=== PATIENT | male | born 1985 | race Two or more races ===

== ENCOUNTER 2021-03-06 12:55 | Inpatient (IN) | payer OTHER ==
[~2021-03-06] VITALS: Ht 175.3 cm; Wt 126.0 kg
[2021-03-06] MEDS ORDERED: ONDANSETRON HCL 4 MG/2 ML VIAL IV ONE (14:00)
[2021-03-06] MEDS ORDERED: SODIUM CHLORIDE 0.9% 1,000 ML IVB ONE (14:00)
[2021-03-06 14:54] LABS: Basophils # (auto) 0 10 ^3/uL (0-0.2); Eosinophils # (auto) 0 10 ^3/uL (0-0.8); Monocytes # (auto) 1.4 10 ^3/uL (0-1.3); Monocytes % (auto) 11.4 % (0.0-12.0); Neutrophils # (auto) 9.4 10 ^3/uL (1.6-8.6); Red Cell Distribution Width 15.5 % (11.8-14.3)
[2021-03-06 14:57] LABS: Basophils % (auto) 0.3 % (0.0-2.0); Eosinophils % (auto) 0.1 % (0.0-7.0); Hematocrit 54.7 % (41.0-53.0); Hemoglobin 17.9 g/dL (13.5-17.5); Lymphocytes # (auto) 1.7 10 ^3/uL (0.4-5.4); Lymphocytes % (auto) 13.6 % (10.0-50.0); Mean Corpuscular Hemoglobin 26.4 pg (28.0-32.0); Mean Corpuscular Hgb Conc. 32.7 g/dL (32.0-36.0); Mean Corpuscular Volume 80.5 fL (80.0-100.0); Neutrophils % (auto) 74.6 % (37.0-80.0); Nucleated Red Blood Cells % 1.2 %; Red Blood Cells 6.79 10^6/uL (4.5-5.90); White Blood Cell 12.6 10^3/uL (4.4-10.8)
[2021-03-06 15:14] LABS: INR 1.08 (0.9-1.15); Partial Thromboplastin Time 24.5 sec (23.0-31.2)
[2021-03-06 15:16] LABS: Chloride 100 mmol/L (98-107); Potassium 4.5 mmol/L (3.5-5.1); Sodium 131 mmol/L (136-145)
[2021-03-06 15:23] LABS: Alanine Aminotransferase 63 U/L (16-61); Albumin 4.6 g/dL (3.4-5.0); Alkaline Phosphatase 94 U/L (45-117); Anion Gap 14 (5-15); Aspartate Aminotransferase 107 U/L (15-37); BUN/Creatinine Ratio 19.5; Bilirubin, Total 1.1 mg/dL (0.2-1.0); Blood Urea Nitrogen 34 mg/dL (7-18); Calcium 9.4 mg/dL (8.5-10.1); Carbon Dioxide 17 mmol/L (21-32); GFR African American 57 mL/min; GFR Non-African American 47 mL/min; Glucose 121 mg/dL (74-106); Total Protein 10.2 g/dL (6.4-8.2)
[2021-03-06] MEDS ORDERED: SODIUM CHLORIDE 0.9% 1,000 ML IV ONE (17:15)
[2021-03-06 18:39] LABS: Urine Bacteria NONE SEEN /hpf (None Seen); Urine Blood Negative /uL (Negative); Urine Mucus FEW (None Seen); Urine Specific Gravity 1.032 (1.001-1.035); Urine WBC 1 /hpf (0 - 3)
[2021-03-06] MEDS: D5W/SOD CHL 0.45% 1,000 ML IV SCH (21:16)
[2021-03-06 22:00] VITALS: BP 155/93
[2021-03-06] MEDS: DONNATAL 5ml ORAL Elix (BELLADONNA ALK-PHENOBARB) PO SCH (22:00)
[2021-03-06] MEDS: LACTULOSE 20Gm/30ML SOLN PO SCH (22:57)
[2021-03-06 23:37] VITALS: BP 155/93
[2021-03-07] MEDS: LACTULOSE 20Gm/30ML SOLN PO SCH ×4 (02:00→14:00)
[2021-03-07] MEDS ORDERED: ASPI-543 PO (03:12)
[2021-03-07] MEDS ORDERED: ATOR20TA PO (03:12)
[2021-03-07] MEDS ORDERED: METO25TA5 PO (03:12)
[2021-03-07] MEDS ORDERED: AMLO-489 PO (03:12)
[2021-03-07] MEDS ORDERED: HYDR12.56 PO (03:12)
[2021-03-07] MEDS ORDERED: ALBUAER3 IN (03:12)
[2021-03-07] MEDS: D5W/SOD CHL 0.45% 1,000 ML IV SCH ×2 (04:25→12:14)
[2021-03-07 05:00] VITALS: BP 122/88
[2021-03-07] MEDS: DONNATAL 5ml ORAL Elix (BELLADONNA ALK-PHENOBARB) PO SCH ×2 (05:52→13:55)
[2021-03-07 08:00] VITALS: BP 136/74
[2021-03-07] MEDS: ONDANSETRON HCL 4 MG/2 ML VIAL IV PRN ×2 (08:15→12:18)
[2021-03-07 09:00] VITALS: BP 136/74
[2021-03-07] MEDS ORDERED: ENOXAPARIN SOD 40 MG/0.4 ML SYRINGE SC SCH (10:00)
[2021-03-07 13:00] VITALS: BP 147/99
[2021-03-07 17:00] VITALS: BP 159/92
== END 2021-03-07 18:20 | DRG 392 ==
LOC: EEVIPCON 12:55 → ER 12:55 → EDBD 12:55 → OVERFLOW 20:37 → WEST WING 21:53
PROVIDERS: ADMIT Internal Medicine; ATTEND Internal Medicine
DX: K52.9 Noninfective gastroenteritis and colitis, unspecified (principal); E87.1 Hypo-osmolality and hyponatremia; R07.89 Other chest pain; Z20.822 Contact with and (suspected) exposure to COVID-19; R79.89 Other specified abnormal findings of blood chemistry; E78.5 Hyperlipidemia, unspecified; E86.0 Dehydration; F17.200 Nicotine dependence, unspecified, uncomplicated; I10 Essential (primary) hypertension; K59.00 Constipation, unspecified
CPT/HCPCS: 36415; 71045; 74176; 80053; 81001; 83735; 83880; 84443; 84484; 85025; 85379; 85610; 85730; 87081; 87426; 93005; 96361; 96374; G0378; J2405